=== PATIENT | female | born 1945 | race Caucasian/White ===

== ENCOUNTER 2024-04-02 11:23 | Emergency (ER) | payer OTHER ==
[~2024-04-02] VITALS: Ht 160 cm; Wt 77.1 kg
[~2024-04-02 11:23] MED LIST: ASPIRIN81 MG PO; ATORVASTATIN CA20 MG PO; AUGMENTIN 500-1 EACH PO; B-121000 MCG PO; BENICAR HCT 201 EACH PO; BREEZE 21 EACH; CALCIUM600 MG PO; CIPRO500 MG PO; CO Q10200 MG PO; LEVOTHYROXINE50 MCG PO; LISINOPRIL10 MG PO; METFORMIN HCL500 M1 PO; NOVOLIN 70100 UNITS/ SQ; NOVOLIN R100 UNIT/1 SQ; POTASSIUM99 M1 PO; PROMETHAZINE12.5 M1 PO; PROTONIX40 MG PO; SPIRONOLACTONE25 MG PO; TYLENOL WITH C1 EACH PO; VAGIFEM10 MCG PO; VITAMIN D1000 UNI1 PO
[2024-04-02 11:48] VITALS: TEMP 98.2
[2024-04-02] MEDS: TETANUS/DIPHTHERIA TOX ADULT 0.5 ML SYR IM ONE (12:16)
[2024-04-02 13:43] VITALS: PULSE 62; RESP 18
[2024-04-02] MEDS: ACETAMINOPHEN 325 MG TAB PO ONE (14:10)
[2024-04-02] MEDS ORDERED: ACETAMINOPHEN 325 MG TAB ONE (14:13)
[2024-04-02 14:47] VITALS: BP 153/77; PULSE 61; RESP 16; O2SAT 100
== END 2024-04-02 14:30 | disposition home or self-care (01) ==
LOC: ER 11:36
DX: S01.111A Laceration without foreign body of right eyelid and periocular area, initial encounter (principal); R51.9 Headache, unspecified; M79.661 Pain in right lower leg; M25.561 Pain in right knee; W18.39XA Other fall on same level, initial encounter; Y92.89 Other specified places as the place of occurrence of the external cause; I10 Essential (primary) hypertension; E11.9 Type 2 diabetes mellitus without complications; E78.5 Hyperlipidemia, unspecified; I50.9 Heart failure, unspecified; Z96.641 Presence of right artificial hip joint; Z96.651 Presence of right artificial knee joint
CPT/HCPCS: 70450; 70486; 72125; 99283

== ENCOUNTER 2024-10-01 08:07 | Emergency (ER) | payer MEDICARE, OTHER ==
[~2024-10-01] VITALS: Ht 160 cm; Wt 78.0 kg
[2024-10-01 08:12] VITALS: PULSE 61; RESP 17; TEMP 98.3; O2SAT 100
[2024-10-01] MEDS: ACETAMINOPHEN 325 MG TAB PO ONE (09:14)
[2024-10-01] MEDS: LIDOCAINE 4% PATCH TP STA (09:14)
[2024-10-01] MEDS: TRAMADOL HCL 50 MG TAB PO ONE (09:14)
[2024-10-01] MEDS: DEXAMETHASONE 4 MG TAB PO STA (09:15)
[2024-10-01] MEDS: KETOROLAC TROMETHAMINE 30 MG/ML VIAL IM STA (09:16)
== END 2024-10-01 10:19 | disposition home or self-care (01) ==
LOC: ER 08:13
DX: M54.42 Lumbago with sciatica, left side (principal); I10 Essential (primary) hypertension; E11.9 Type 2 diabetes mellitus without complications; I50.9 Heart failure, unspecified; E78.5 Hyperlipidemia, unspecified; Z96.641 Presence of right artificial hip joint; Z96.651 Presence of right artificial knee joint
CPT/HCPCS: 74176; 99284; J1885; J8540